=== PATIENT | male | born 1965 | race Two or more races ===

== ENCOUNTER 2019-12-02 05:39 | Emergency (ER) | payer MEDICAID ==
[~2019-12-02] VITALS: Ht 167.6 cm; Wt 68.0 kg
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
[2019-12-02 05:36] VITALS: BP 134/89
--- NOTE | 2019-12-02 05:39 | NUR ---
ED Nurse Note: ERMD at bedside
--- NOTE | 2019-12-02 05:48 | NUR ---
ED Nurse Note: Pt cleaned after removal of foreign object via ERMD. Pt aao x 4, pt states that pain is 2/10 and states that he feels significantly better. Awaiting further orders.
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
[2019-12-02 06:00] VITALS: BP 125/84
--- NOTE | 2019-12-02 06:00 | NUR ---
ER DISCHARGE NOTE: Patient is cleared to be discharged home per ERMD, pt is aox4, 99% on room air, with stable vital signs. pt was given dc and prescription instructions, pt was able to verbalize understanding, pt id band removed. pt is able to ambulate with steady gait. pt took all belongings. pt verbalized understanding of discharge instructions.
== END 2019-12-02 06:30 | disposition home or self-care (01) ==
LOC: EDBD 05:39 → EMR 06:26
DX: T18.5XXA Foreign body in anus and rectum, initial encounter (principal); X58.XXXA Exposure to other specified factors, initial encounter; Y92.9 Unspecified place or not applicable
CPT/HCPCS: 99283